=== PATIENT | female | born 1960 | race Caucasian/White ===

== ENCOUNTER 2024-09-16 08:00 | Emergency (ER) | payer OTHER ==
[~2024-09-16] VITALS: Ht 167.6 cm; Wt 72.2 kg
[2024-09-16 08:06] VITALS: TEMP 98.2
[2024-09-16 09:51] LABS: BASOPHILS % (AUTO) 1.4 % (0.0-2.0); EOSINOPHILS % (AUTO) 1.3 % (1.0-6.0); HEMATOCRIT 40.5 % (36-46); HEMOGLOBIN 13.7 g/dL (12.0-16.0); LYMPHOCYTES # (AUTO) 0.8 K/uL (1.0-4.8); LYMPHOCYTES % (AUTO) 19.8 % (22.0-44.0); MEAN CORPUSCULAR HGB CONC 33.8 G/dL (31.0-37.0); MEAN CORPUSCULAR VOLUME 101 fL (80-100); MONOCYTES # (AUTO) 0.5 K/uL (0.1-1.0); MONOCYTES % (AUTO) 12.3 % (2.0-9.0); NEUTROPHILS # (AUTO) 2.8 K/uL (1.8-7.7); NEUTROPHILS % (AUTO) 65.2 % (40.0-70.0); RED BLOOD CELL COUNT(AUTO) 4.02 MIL/uL (4.00-5.20); RED CELL DISTRIBUTION WIDTH 14.4 % (11.5-14.5); WHITE BLOOD COUNT (AUTO) 4.3 K/uL (4.5-11.0)
[2024-09-16 10:03] LABS: ANION GAP 13 mmol/L (8-16); CALCIUM, TOTAL 9.6 mg/dL (8.8-10.5); CARBON DIOXIDE 29 mmol/L (22-29); CHLORIDE 102 mmol/L (98-107); CREATININE 1.36 mg/dL (0.60-1.30); GLOMERULAR FILTR. RATE CALC 39 mL/min (>60); GLUCOSE,RANDOM 98 mg/dL (70-110); POTASSIUM 4.4 mmol/L (3.5-5.1); SODIUM SERUM 144 mmol/L (136-145); UREA NITROGEN, BLOOD 15 mg/dL (7-18)
[2024-09-16 10:09] LABS: ALCOHOL, BLOOD (SERUM) < 3 mg/dL (0-10)
[2024-09-16 10:12] LABS: CREATINE KINASE, TOTAL ONLY 365 U/L (26-192); LIPASE 11 U/L (16-77); TROPONIN I-HIGH SENSITIVITY 9 ng/L (<51)
[2024-09-16] MEDS: NITROGLYCERIN 2% (1 GM=INCH) OINTMENT PACKET TP ONE (10:19)
[2024-09-16] MEDS: ASPIRIN 325 MG TABLET PO ONE (10:19)
[2024-09-16 10:24] LABS: PLATELET COUNT (AUTO) 77 K/uL (150-450); RBC MORPHOLOGY COMMENT ABNORMAL RBC MORPH
[2024-09-16 10:46] VITALS: BP 142/78; PULSE 86; RESP 16; O2SAT 98
[2024-09-16] MEDS ORDERED: LEVE-71 PO (12:10)
[2024-09-16] MEDS ORDERED: CLON-595 PO (12:10)
[2024-09-16] MEDS ORDERED: OMEP-148 PO (12:10)
[2024-09-16] MEDS: METHADONE HCL 10 MG TABLET PO ONE (12:10)
== END 2024-09-16 12:00 | disposition home or self-care (01) ==
LOC: EMS 08:00
DX: G89.29 Other chronic pain (principal); M25.561 Pain in right knee; M25.562 Pain in left knee
CPT/HCPCS: 99285; 71045; 80048; 82550; 83690; 84484; 85025; 36415; 93005; G0480